=== PATIENT | male | born 2005 | race Two or more races ===

== ENCOUNTER 2025-06-30 17:39 | Emergency (ER) | payer OTHER ==
[~2025-06-30] VITALS: Ht 177.8 cm; Wt 61.2 kg
[2025-06-30 18:59] LABS: BASO % 0.3 % (0.1-1.2); EOS # 0.03 (0.04-0.54); EOS % 0.4 % (0.7-7.0); LYMPH # 1.82 (1.18-3.74); LYMPH % 26.6 % (19.3-53.1); MEAN PLATELET VOLUME 8.50 fl (9.4-12.4); MONO # 0.52 (0.24-0.82); MONO % 7.6 % (4.7-12.5); NEUT # 4.42 (1.56-6.13); NEUT % 64.8 % (34.0-71.1); RED CELL DISTRIBUTION WIDTH 11.6 % (11.6-14.4)
[2025-06-30 19:18] LABS: URINE APPEARANCE Clear; URINE BILIRRUBIN Negative (NEGATIVE); URINE BLOOD Negative; URINE COLOR Yellow; URINE GLUCOSE Negative (NEGATIVE); URINE KETONE Negative (NEGATIVE); URINE LEUKOCYTE Negative; URINE NITRATE Negative; URINE PROTEIN Negative (NEGATIVE); URINE UROBILINOGEN 1.0 E.U./dl
[2025-06-30 19:19] LABS: URINE BACTERIA 86.3 uL (0.0-1933); URINE EPITHELIAL CELLS 1.5 uL (0.0-38.8); URINE RBC 2.6 uL (0.0-20.8); URINE WBC 2.9 uL (0.0-23.2)
[2025-06-30 19:24] LABS: URINE CAST 0.00 uL (0.0-1.40)
[2025-06-30 19:46] LABS: COCAINE NEGATIVE (NEGATIVE); METHADONE NEGATIVE (NEGATIVE); OPIATES NEGATIVE (NEGATIVE); THC ( Cannabinoids) NEGATIVE (NEGATIVE)
[2025-06-30 19:48] LABS: ALT/SGPT 27.0 U/L (12-78); AST/SGOT 28.0 U/L (15-37); BILIRUBIN TOTAL 1.82 mg/dL (0.3-1.2); BUN CREA RATIO 15.0 (7.0-25.0); CREATININE SERUM 0.98 mg/dL (0.70-1.30); GFR 96.55; GLOBULINA 3.0 G/DL (2.4-3.5); GLUCOSE FASTING 95.0 mg/dL (65-100); OSMOLALITY SERUM 282.0 MOSM/KG (275-295)
== END 2025-06-30 20:48 | disposition home or self-care (01) ==
LOC: ER 17:39 → EMR PED 18:03
DX: R42 Dizziness and giddiness (principal); F41.8 Other specified anxiety disorders; F41.0 Panic disorder [episodic paroxysmal anxiety]